=== PATIENT | female | born 2000 | race Caucasian/White ===

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

== ENCOUNTER 2023-12-18 12:07 | Emergency (ER) | payer OTHER ==
[2023-12-18 12:14] VITALS: BP 115/78; PULSE 80; RESP 20; TEMP 98.8; BMI 35.9
[2023-12-18] MEDS ORDERED: ASPIRIN 81 MG CHEWABLE TABLETS ONE ×2 (13:35→13:42)
[2023-12-18] MEDS: ASPIRIN 81 MG CHEWABLE TABLETS PO ONE (13:45)
[2023-12-18] MEDS: SODIUM CHLORIDE 1,000 ML IV STA (13:55)
[2023-12-18 14:07] LABS: BASO % 1.1 % (0-2.0); EOS % 1.5 % (0-4.5); HEMATOCRIT 42.4 % (32.4-45.2); HEMOGLOBIN 14.3 GM/dL (10.7-15.3); MCH 29.5 pg (25.7-33.7); MCHC 33.6 g/dl (32.0-36.0); MEAN CELL VOLUME 87.6 fl (80-96); MEAN PLT VOLUME 7.7 fl (7.5-11.1); MONO % 6.6 % (3.8-10.2); NEUT % 57.8 % (42.8-82.8); PLATELET COUNT 328 10^3/uL (134-434); RBC 4.85 M/mm3 (3.60-5.2); RDW 13.9 % (11.6-15.6); WHITE BLOOD COUNT 8.9 K/mm3 (4.0-10.0)
[2023-12-18 14:19] LABS: INR 1.05 (0.83-1.09); PROTHROMBIN TIME (PATIENT) 12.2 SEC (9.7-13.0)
[2023-12-18 14:30] LABS: POTASSIUM 4.4 mmol/L (3.5-5.1)
[2023-12-18 14:33] LABS: ALBUMIN 3.9 g/dl (3.4-5.0); BLOOD UREA NITROGEN 16.7 mg/dL (7-18); CALCIUM 9.7 mg/dL (8.5-10.1)
[2023-12-18 14:34] LABS: MAGNESIUM 2.1 mg/dL (1.8-2.4)
[2023-12-18 14:36] LABS: CREATININE 0.9 mg/dL (0.55-1.3)
[2023-12-18 14:37] LABS: BILIRUBIN,TOTAL 0.3 mg/dL (0.2-1)
[2023-12-18 14:40] LABS: TOT PROT 7.7 g/dl (6.4-8.2)
[2023-12-18 16:02] LABS: PH,URINE 5.5 (5.0-8.0); URINE APPEARANCE CLEAR; URINE BILIRUBIN NEGATIVE (NEGATIVE); URINE COLOR YELLOW; URINE GLUCOSE (UA) NEGATIVE (NEGATIVE); URINE KETONE NEGATIVE (NEGATIVE); URINE LEUK ESTERASE NEGATIVE (NEGATIVE); URINE NITRITE NEGATIVE (NEGATIVE); URINE PROTEIN NEGATIVE (NEGATIVE); URINE UROBILINOGEN 0.2 mg/dL (0.2-1.0)
[2023-12-18 17:05] LABS: HCG,QUALITATIVE URINE Negative
== END 2023-12-18 16:20 | disposition home or self-care (01) ==
LOC: JER 12:07
PROC: 3E0337Z Introduction of Electrolytic and Water Balance Substance into Peripheral Vein, Percutaneous Approach (ICD-10-PCS; principal; 2023-12-18)
DX: R00.2 Palpitations (principal); R07.9 Chest pain, unspecified
CPT/HCPCS: 36415; 71046-TC-FY; 80053; 81003; 83735; 84484; 84703; 85025; 85379; 85610; 85730; 87086; 93005; 93010; 99285-25

== ENCOUNTER 2025-03-09 16:35 | Emergency (ER) | payer OTHER ==
[2025-03-09 16:44] VITALS: BP 119/73; PULSE 68; RESP 18; TEMP 99; BMI 30.2
[2025-03-09] MEDS ORDERED: IBUPROFEN 600 MG TABLET (FP) PO ONE (17:41)
[2025-03-09] MEDS: IBUPROFEN 600 MG TABLET (FP) PO ONE (17:47)
[2025-03-09 19:33] LABS: HCV DIAGNOSTIC IN-HOUSE W/RFLX NON-REACTIVE (NONREACTIVE); HIV INTERPRETATION NEGATIVE (NEGATIVE)
== END 2025-03-09 19:02 | disposition home or self-care (01) ==
LOC: JERFT 16:35
DX: S83.91XA Sprain of unspecified site of right knee, initial encounter (principal); X50.1XXA Overexertion from prolonged static or awkward postures, initial encounter; Y93.B9 Activity, other involving muscle strengthening exercises
CPT/HCPCS: 36415; 73610-TC-RT-FY; 86803; 87389; 99284-25

== ENCOUNTER 2025-06-10 14:43 | Emergency (ER) | payer OTHER ==
[2025-06-10 14:47] VITALS: BP 112/63; PULSE 75; RESP 18; TEMP 98.2; BMI 28.9
[2025-06-10] MEDS ORDERED: predniSONE 20 MG TABLET (UD) ONE (15:27)
[2025-06-10] MEDS ORDERED: METHOCARBAMOL 500 MG TABLET ONE (15:27)
[2025-06-10] MEDS ORDERED: ACETAMINOPHEN 500 MG TABLET (FP) ONE (15:27)
[2025-06-10] MEDS: predniSONE 20 MG TABLET (UD) PO ONE (15:31)
[2025-06-10] MEDS: METHOCARBAMOL 500 MG TABLET PO ONE (15:32)
[2025-06-10] MEDS: ACETAMINOPHEN 500 MG TABLET (FP) PO ONE (15:32)
[2025-06-10 15:55] LABS: EPI CELLS >36 /uL (0-25.1); HYALINE CASTS 2 /uL (0-3.1); URINE APPEARANCE CLOUDY; URINE BACTERIA 219 /uL (0-1359); URINE BILIRUBIN NEGATIVE (NEGATIVE); URINE COLOR ORANGE; URINE GLUCOSE (UA) NEGATIVE (NEGATIVE); URINE KETONE TRACE (NEGATIVE); URINE LEUK ESTERASE NEGATIVE (NEGATIVE); URINE NITRITE NEGATIVE (NEGATIVE); URINE PROTEIN 1+ (NEGATIVE); URINE RBC 2917 /uL (0-23.9); URINE UROBILINOGEN 1.0 mg/dL (0.2-1.0); URINE WBC 32 /uL (0-25.8)
[2025-06-10 16:01] LABS: HCG,QUALITATIVE URINE Negative
[2025-06-10 16:41] LABS: HCV DIAGNOSTIC IN-HOUSE W/RFLX NON-REACTIVE (NONREACTIVE); HIV INTERPRETATION NEGATIVE (NEGATIVE)
== END 2025-06-10 17:46 | disposition home or self-care (01) ==
LOC: JERFT 14:43 → JER 14:43 → JERFT 17:46
DX: M54.42 Lumbago with sciatica, left side (principal); R20.2 Paresthesia of skin
CPT/HCPCS: 36415; 72131-TC; 81003; 84703; 86803; 87086; 87389; 99284-25